=== PATIENT | male | born 1960 | race Caucasian/White ===

== ENCOUNTER 2017-01-06 13:17 | Emergency (ER) | payer OTHER ==
[~2017-01-06] VITALS: Ht 180.3 cm; Wt 163.3 kg
[~2017-01-06 13:17] MED LIST: ALBUTEROL2.5 MG/3 M INH; ALLOPURINOL300 MG PO; ALPRAZOLAM0.25 MG PO; AMOXICILLIN875 MG PO; ATENOLOL25 MG PO; ATENOLOL50 MG PO; BUDESONIDE0.5 MG/2 M INH; CARDURA4 MG PO; CATAFLAM50 MG PO; CIPROFLOXACIN500 MG PO; CITALOPRAM HBR20 MG PO; COZAAR50 MG PO; DICLOFENAC SODI50 MG PO; DOXYCYCLINE HY100 MG PO; DUONEB 0.5 MG-33 ML IH; FLOMAX0.4 MG PO; FUROSEMIDE20 MG PO; FUROSEMIDE40 MG PO; GUAIATUSSIN AC10 ML PO; HYDROCHLOROTH12.5 MG PO; HYDROCODON-ACE1 EA11 PO; LEVAQUIN500 MG PO; LOSARTAN POTAS100 MG PO; NARCAN4 MG NS; NORCO 7.5-3251 EACH PO; NORTRIPTYLINE H10 MG PO; OMEPRAZOLE20 MG PO; ONDANSETRON HCL8 MG PO; PAMELOR10 MG PO; PERCOCET 5-3251 EACH PO; PREDNISONE20 MG PO; PROCHLORPERAZIN10 MG PO; PROVENTIL HFA6.7 GM INH; SEPTRA DS TABL1 EACH PO; SPIRIVA18 MCG INH; VITAMIN D2000 UNIT PO; ZITHROMAX250 MG PO; ZITHROMAX500 MG PO
[2017-01-06] MEDS ORDERED: KEPPRA1000 MG PO (13:36)
[2017-01-06] MEDS ORDERED: NYSTATIN-TRIAMC15 GM TOP (13:36)
[2017-01-06] MEDS ORDERED: MEMANTINE HCL10 MG PO (13:37)
== END 2017-01-06 15:11 | disposition home or self-care (01) ==
LOC: ED 13:17
DX: R41.82 Altered mental status, unspecified (principal); I10 Essential (primary) hypertension; C34.90 Malignant neoplasm of unspecified part of unspecified bronchus or lung; C78.7 Secondary malignant neoplasm of liver and intrahepatic bile duct; F17.200 Nicotine dependence, unspecified, uncomplicated; Z88.5 Allergy status to narcotic agent; Z88.2 Allergy status to sulfonamides; Z88.8 Allergy status to other drugs, medicaments and biological substances; Z79.899 Other long term (current) drug therapy
CPT/HCPCS: 70450; 80048; 85025; 99284

== ENCOUNTER 2017-01-27 14:10 | Emergency (ER) | payer OTHER ==
[~2017-01-27] VITALS: Ht 180.3 cm; Wt 156.5 kg
[~2017-01-27 14:10] MED LIST changes: +KEPPRA1000 MG PO; +MEMANTINE HCL10 MG PO; +NYSTATIN-TRIAMC15 GM TOP
[2017-01-27] MEDS ORDERED: LEVETIRACETAM1000 MG PO (14:26)
== END 2017-01-27 15:50 | disposition home or self-care (01) ==
LOC: ED 14:10
PROC: 0S9D3ZZ Drainage of Left Knee Joint, Percutaneous Approach (ICD-10-PCS; principal; 2017-01-27)
DX: M25.562 Pain in left knee (principal); I10 Essential (primary) hypertension; J44.9 Chronic obstructive pulmonary disease, unspecified; F17.200 Nicotine dependence, unspecified, uncomplicated; Z88.5 Allergy status to narcotic agent; Z88.8 Allergy status to other drugs, medicaments and biological substances; Z88.2 Allergy status to sulfonamides; Z79.899 Other long term (current) drug therapy
CPT/HCPCS: 20610; 99282; J3301

== ENCOUNTER 2017-03-06 21:06 | Emergency (ER) | payer OTHER ==
[~2017-03-06] VITALS: Ht 180.3 cm; Wt 156.5 kg
[~2017-03-06 21:06] MED LIST changes: +LEVETIRACETAM1000 MG PO
[2017-03-06] MEDS ORDERED: XARELTO15 MG PO (22:02)
[2017-03-06] MEDS ORDERED: NORCO 7.5-3251 EACH PO (22:03)
[2017-03-06] MEDS ORDERED: BUDESONIDE0.5 MG/2 M INH (22:04)
[2017-03-07] MEDS ORDERED: AUGMENTIN 875-1 EACH PO (01:21)
--- NOTE | 2017-03-07 07:27 | EKG ---
[facility] [address] [place] [address] Signed Sinus bradycardia Right bundle branch block Abnormal ECG When compared with ECG of 12-NOV-2016 18:19, Nonspecific T wave abnormality now evident in Anterior leads Confirmed by PAWEL URIAS MD ([id number]) on 03/07/2017 7:27:47 AM Electronically Signed By: PAWEL URIAS MD 03/07/17 0727 PATIENT NAME: KRISTI LOBATO Electrocardiogram DATE OF : 56 PHYSICIAN: PAWEL URIAS MD REPORT #: [id number] REPORT IS CONFIDENTIAL AND NOT TO BE RELEASED WITHOUT AUTHORIZATION
== END 2017-03-07 01:50 | disposition home or self-care (01) ==
LOC: ED 21:06
DX: J01.90 Acute sinusitis, unspecified (principal); I95.9 Hypotension, unspecified; I10 Essential (primary) hypertension; J44.9 Chronic obstructive pulmonary disease, unspecified; F17.200 Nicotine dependence, unspecified, uncomplicated; Z85.118 Personal history of other malignant neoplasm of bronchus and lung; Z85.05 Personal history of malignant neoplasm of liver; Z85.841 Personal history of malignant neoplasm of brain; Z98.890 Other specified postprocedural states; Z88.1 Allergy status to other antibiotic agents; Z88.2 Allergy status to sulfonamides; Z88.8 Allergy status to other drugs, medicaments and biological substances; Z79.899 Other long term (current) drug therapy; Z79.51 Long term (current) use of inhaled steroids
CPT/HCPCS: 70450; 71010; 80053; 81001; 85025; 85610; 85730; 93005; 93010; 96361; 96374; 99284; J7030

== ENCOUNTER 2017-03-12 02:27 | Emergency (ER) | payer OTHER ==
[~2017-03-12] VITALS: Ht 180.3 cm; Wt 156.5 kg
[~2017-03-12 02:27] MED LIST changes: +AUGMENTIN 875-1 EACH PO; +XARELTO15 MG PO
== END 2017-03-12 04:55 | disposition home or self-care (01) ==
LOC: ED 02:27
DX: R44.3 Hallucinations, unspecified (principal); I10 Essential (primary) hypertension; J44.9 Chronic obstructive pulmonary disease, unspecified; C34.90 Malignant neoplasm of unspecified part of unspecified bronchus or lung; C78.7 Secondary malignant neoplasm of liver and intrahepatic bile duct; C79.31 Secondary malignant neoplasm of brain; F17.200 Nicotine dependence, unspecified, uncomplicated; Z88.2 Allergy status to sulfonamides; Z88.8 Allergy status to other drugs, medicaments and biological substances; Z79.899 Other long term (current) drug therapy
CPT/HCPCS: 80053; 83735; 85025; 99283; J7030

== ENCOUNTER 2017-04-25 08:22 | Observation (INO) | payer OTHER ==
[~2017-04-25] VITALS: Ht 180.3 cm; Wt 141.3 kg
--- NOTE | 2017-04-25 12:30 | NUR ---
PATIENT ARRIVED TO MED SURG VIA GURNEY. PATIENT ABLE TO ROLL AND AID IN LINEN CHANGE. PATIENT VOIDED TO URINAL, REPORTED HIS PAIN MAINLY FROM URGE TO URINATE. NURSE DISCUSSED WITH PATIENT THE MEDICATIONS AVAILABLE TO HIM. PATIENT CURRENTLY DENIES NEEDING MEDICATION FOR PAIN OR ANXIETY. FAMILY IN ROOM WITH PATIENT. DENTURES AT BEDSIDE TABLE. PATIENT HAS ORDERED SOUP FOR LUNCH.
--- NOTE | 2017-04-25 13:49 | NUR ---
PATIENT HAVING DIFFICULTY TOLERATING ANY TIME OFF OF BIPAP TO EAT. DISCUSSED WITH PATIENT AND FAMILY THAT THIS WOULD BECOME MORE THE CASE AND EVENTUALLY PATIENT WOULD NOT BE ABLE TO HAVE BIPAP OFF AT ALL. PATIENT AN FAMILY ARE AWARE OF THIS. PATIENT FAMILY CONTINUES TO CHECK PATIENT WITH HOME O2 OXIMETER. NURSE ENCOURAGED FAMILY TO WATCH FOR PATIENT RESPONSE TO HAVING BIPAP OFF, RATHER THAT CHECKING O2 LEVELS.
--- NOTE | 2017-04-25 14:55 | NUR ---
patient denies pain, but does endorse needing to sleep. 1mg of SL ATIVAN GIVEN. bi-pap is on. Extended family has left so patient may rest.
--- NOTE | 2017-04-25 16:08 | NUR ---
PATIENT GIVEN 20MG OF SL MORPHINE FOR 5-6/10 PAIN. PATIENT REPOSITIONED IN BED AND IS HOPING TO TAKE A NAP SOON.
--- NOTE | 2017-04-25 18:02 | NUR ---
PATIENT RESTING IN BED, APPEARS TO BE ASLEEP WITH BI-PAP ON. WILL PLAN TO GIVE XARELTO PATIENT WAKES UP. PATIENT VOIDS TO URINAL, HELPS REPOSITION SELF, BUT IS BED BOUND DUE TO RESPIRATORY STATUS. PATIENT CAN TOLERATE 5-6 MINUTES ON 6L PER NC THEN MUST BE BACK ON BI-PAP. NEW TEMP IS 100.5. PATIENT TO HAVE HOSPICE CONSULT TOMORROW.
--- NOTE | 2017-04-25 19:00 | NUR ---
REPORT RECEIVED FROM OFFGOING RN. FAMILY COMING AND GOING FROM PT'S ROOM.
--- NOTE | 2017-04-25 21:16 | NUR ---
PT LYING IN BED WITH BI-PAP IN PLACE. FAMILY SURROUNDING BEDSIDE. NO NON-VERBAL S/SX OF PAIN PRESENT. BREATHING IS SHALLOW AND TACHYPENIC. PT DOES NOT WAKE OR RESPOND WHEN ENGINE SETTER MOVES HIS HANDS/ARMS. PURPLE DISCOLORATION PRESENT TO TOP OF BILATERAL FEET JUST UNDER 2ND AND 3RD TOES. PT'S STATES THAT SHE WAS UNWARE PT HAD BRUISED HIS FEET. EDUCATION REGARDING END OF LIFE PROCESSES PROVIDED TO FAMILY, FAMILY STATES UNDERSTANDING, DENIES FURTHER QUESTIONS. CALL LIGHT WITHIN REACH OF FAMILY. STATES INTENTION TO STAY THE NIGHT WITH PATIENT.
--- NOTE | 2017-04-25 23:30 | NUR ---
PT LYING IN BED WITH EYES CLOSED, BI PAP IN PLACE. PT APPEARS TO BE SLEEPING, REMAINS TACHYPENIC. DISCUSION/EDUCATION PROVIDED TO PT'S REGARDING EOL CARE AND S/SX. UNDERSTANDING STATED, DENIES FURTHER QUESTIONS. PT WAKES EASILY WHEN ADJUNCT PHYSICAL EDUCATION INSTRUCTOR MOVES HIS ARM, ABLE TO FOLLOW COMMANDS AND ASSISTS WITH TURNING. LINENS ON BED CHANGED AND PT REPOSITIONED/PROPPED TO L SIDE. PT DENIES PAIN WHEN ASKED. PT AND HIS DENY FURTHER NEEDS. CALL LIGHT WITHIN PT'S REACH. UNDERSTANDS CALL LIGHT USE FOR NEEDS WELL, STATES THAT SHE PLANS TO STAY THE NIGHT.
--- NOTE | 2017-04-26 01:28 | NUR ---
PT RESTING IN BED WITH EYES CLOSED. BI PAP IN PLACE, RESPIRATIONS EVEN AND UNLABORED. PT APPEARS TO BE SLEEPING. PT'S SLEEPING AT BEDSIDE. CALL LIGHT WITHIN PT'S REACH.
--- NOTE | 2017-04-26 03:16 | NUR ---
PT RESTING IN BED WITH EYES CLOSED. BIPAP IS IN PLACE APPROPRIATELY. PT APPEARS TO BE SLEEPING. CALL LIGHT WITHIN PT'S REACH, PT SLEEPING ON COUCH.
--- NOTE | 2017-04-26 05:15 | NUR ---
PT RESTLESS IN BED, DETACHED BIPAP TUBING FROM MASK. TUBING RECONNECTED, RR 40. PT REPORTS DISCOMFORT, POINTS TO CHEST AREA. PRN MORPHINE ADMINISTERED. PT ASSISTED TO REPOSITION IN BED. PT RR 22 AFTER MORPHINE ADMINISTERD. PT STATES RELIEF FROM DISCOMFORT. PT'S REMAINS AT BEDSIDE. CALL LIGHT WITHIN PT'S REACH.
--- NOTE | 2017-04-26 05:49 | NUR ---
PT RESTED WELL THROUGHOUT THE NIGHT. MORPHINE X 1 FOR DISCOMFORT TO CHEST AREA AND INCREASED RESPIRATORY RATE. BED CHANGED DUE TO INCONTINENCE AND PT REPOSITIONED. PT REMAINS BEDBOUND. BIPAP IN PLACE. PT SUPPOSED TO HAVE HOSPICE CONSULT TODAY.
--- NOTE | 2017-04-26 07:49 | NUR ---
PATIENT IN BED ASLEEP. DOES NOT NEED ANYTHING ELSE AT THIS TIME.
--- NOTE | 2017-04-26 08:47 | NUR ---
PATIENT HAVING SOME SOB. MORPHINE 10MG GIVEN. AT BEDSIDE. BIPAP IN PLACE. RESP THERAPIST IN TO GIVE BREATHING TX. TOOK XARELTO ORDERED.
--- NOTE | 2017-04-26 09:00 | NUR ---
KATLYN NOTEMANGAS STATION CLERK IN TO SEE PATIENT/FAMILY.
--- NOTE | 2017-04-26 11:39 | NUR ---
PATIENT DOES NOT NEED ANYTHING AT THIS TIME. FAMILY IN ROOM.
--- NOTE | 2017-04-26 13:30 | NUR ---
SPOKE WITH PATIENT AND SIG OTHER IN ROOM. PATIENT WAS WEARING BIPAP AND WAS OBVIOUSLY LABORED BREATHING WITH SPEAKING. HE DEFERRED TO SIG OTHER FOR DETAILS BUT STATED HE WANTS TO GO HOME WITH HOSPICE HELP. SIG OTHER JUNITO ZEPEDA [phone] AT BEDSIDE. SHE STATES SHE IS READY TO TAKE PATIENT HOME TO CARE FOR HIM. SHE STATES SHE HAS MANY FAMILY MEMBERS AND FRIENDS WHO ARE GOING TO HELP. SHE HAS SPOKEN TO HOSPICE AND THEY ARE PLANNING ON HIS DISCHARGE TO HOME TOMORROW. SHE STATES THEY WILL NEED A EMS TRANSFER SHE IS SURE SHE CANNOT GET HIM IN A CAR. SHE STATES THEY HAVE 2 STEPS INTO APARTMENT AND HE WOULD NOT BE ABLE TO WALK DUE TO EXTREME WEAKNESS AND SOB. PATIENT IS DEPENDENT UPON THE BIPAP FOR CONTROL OF SOB. SHE IS AWARE HOME HEALTH WILL BE ARRANGING BED, CPAP AND OXYGEN. WILL CONTINUE TO WORK ON PLANS WITH HOME HEALTH AND EMS TOMORROW.
--- NOTE | 2017-04-26 14:15 | NUR ---
NURSE IN ROOM
--- NOTE | 2017-04-26 14:32 | NUR ---
PT IN BED WITH BIPAP ON. PT IS ABLE TO RESPOND THRU MASK AND PARTICIPATE WITH CONVERSATION. FAMILY PRESENT. THEIR OUTBOARD MOTOR INSPECTOR WAS JUST IN TO VISIT. OFFERED ASSISTANCE IF THERE ARE ANY QUESTIONS THEY HAVE. ENCOURAGED HIS TO WRITE DOWN ANY THOUGHTS SHE MAY HAVE RATHER THAN TRY TO REMEMBER. PT TO BE DC'D TOMORROW ON HOSPICE. PT REQUESTED PRAYER WELL FAMILY. WILL FOLLOW NEEDED
--- NOTE | 2017-04-26 15:54 | NUR ---
PATIENT DOING WELL. DOES NOT NEED ANYTHING AT THIS TIME.
--- NOTE | 2017-04-26 16:06 | NUR ---
NOTIFIED [facility] TO SCHEDULE PROBABLE NON-EMERGENT TRANSFER TOMORROW. PATIENT INFORMATION GIVEN, WILL CALL TOMORROW FOR TIME.
[2017-04-26] MEDS ORDERED: KEPPRA1000 MG PO (17:03)
[2017-04-26] MEDS ORDERED: LEVOTHYROXINE125 MCG PO (17:04)
[2017-04-26] MEDS ORDERED: METOPROLOL TART25 MG PO (17:07)
[2017-04-26] MEDS ORDERED: DAILY MULTIPLE1 EACH PO (17:08)
[2017-04-26] MEDS ORDERED: PREDNISONE20 MG PO (17:10)
[2017-04-26] MEDS ORDERED: SPIRIVA18 MCG INH (17:10)
[2017-04-26] MEDS ORDERED: ACETAMINOPHEN325 M1 PO (17:13)
--- NOTE | 2017-04-26 17:59 | NUR ---
MORPHINE/LORAZEPAM GIVEN PRN (GIVE PROPHYLACTICALLY FOR MEAL TIMES). LOTS OF FAMILY AT BEDSIDE. BIPAP THROUGHOUT DAY. SOB WITHOUT BIPAP. FAMILY HELPS WITH MEALS. NOT OUT OF BED D/T OXYGEN NEEDS. URINAL. S/L. WILL GO HOME ON HOSPICE TOMORROW. XARELTO FOR DVT PROPHYLAXIS.
--- NOTE | 2017-04-26 20:07 | NUR ---
PT LYING IN BED, BI PAP IN PLACE. RT AT BEDSIDE ADJUSTING BIPAP. PT WAKES FOR BRIEF PERIODS BUT QUICKLY FALLS BACK TO SLEEP. PT SLIGHTLY RESTLESS/ANXIOUS. PRN MS ADMINISTERED. CALL LIGHT WITHIN PT'S REACH, PT'S REMAINS AT BEDSIDE. DENIES OTHER NEEDS AT THIS TIME.
--- NOTE | 2017-04-26 23:42 | NUR ---
Pt resting in bed with eyes closed. Bi pap mask leaking. Mask readjusted, pt opens his eyes briefly. Denies pain or discomfort at this time. Pt's sleeping on couch in room, call light within pt's reach.
--- NOTE | 2017-04-27 00:20 | NUR ---
PT DISPLAYING INCREASED RESTLESSNESS, MOVING LEGS AND ARMS AROUND IN BED. SLIGHT MOANING AT TIMES. PRN MORPHINE ADMINISTERED. PT CALL LIGHT WITHIN REACH, SLEEPING IN ROOM.
--- NOTE | 2017-04-27 02:28 | NUR ---
PT RESTING WITH EYES CLOSED. RESPIRATIONS EVEN AND UNLABORED, SHALLOW RESPIRATIONS. RR IN 30'S, BIPAP IN PLACE. PT'S SLEEPING ON COUCH, CALL LIGHT WITHIN PT'S REACH.
--- NOTE | 2017-04-27 03:10 | NUR ---
RT IN ROOM TO CHECK ON PT, INFORMS POLICY WRITER THAT PT IS RESTLESS WITH LEGS JERKING AND CRYING OUT. POLICY WRITER TO ROOM, PT WAKES EASILY DENIES PAIN/DISCOMFORT. STATES "A LITTLE BIT, NOT BAD", WHEN ASKED IF SHORT OF BREATH. PT SHAKING LEGS, SQUEEZING WASH CLOTHS IN HANDS. PRN ATIVAN ADMINISTERED. CALL LIGHT WITHIN PT'S REACH, LYING ON COUCH AWAKE.
--- NOTE | 2017-04-27 03:50 | NUR ---
PTS AT BEDSIDE SHE STATES THAT PT APPEARS MORE RELAXED. NO JERKING OR RESTLESSNESS NOTED. PT TAKING DEEP BREATHS IN. PT'S STATES THAT SHE HAS NOTICED THAT PT'S BREATHING HAS CHANGED, SHE STATES THAT PT IS "GETTING CLOSER". SHE DENIES NEEDS AT THIS TIME. PT APPEARS TO BE RESTING COMFORTABLY.
--- NOTE | 2017-04-27 04:53 | NUR ---
MORPHINE X3, LORAZEPAM X 1 THIS SHIFT. MORPHINE AND LORAZEPAM NEED TO BE GIVEN PRIOR TO PT EATING PER MD. BIPAP IN PLACE. URINAL/INCONTINENCE, PT REMAINS IN BED ONLY. PLAN FOR PT TO DC HOME ON HOSPICE TOMORROW.
--- NOTE | 2017-04-27 05:40 | NUR ---
PT TURNED, RESPOSITIONED, AND PROPPED WITH PILLOWS. PT REMAINS AT BEDSIDE. NO NONVERBAL S/SX OF PAIN PRESENT. CALL LIGHT WITHIN REACH.
--- NOTE | 2017-04-27 07:55 | NUR ---
PATIENT ASLEEP IN BED. ONCE AWAKE, WILL OFFER AM CARE/BEDBATH. PATIENT'S IN ROOM. WHITEBOARD UPDATED, ROOM TIDIED.
--- NOTE | 2017-04-27 09:20 | NUR ---
SPOKE WITH HOSPICE DEPARTMENT. THEY HAVE ARRANGED FOR BED, AND BIPAP SET UP. PLAN WILL BE FOR [facility] TO BRING BIPAP TO HOSPITAL AROUND 11AM FOR TEACHING OF FAMILY AND FITTING. THEN THEY WILL SET HOSPITAL BED UP AT PATIENTS HOME. THEY STATED THEY SPOKE WITH SIG OTHER BY PHONE. VISITED PATIENTS ROOM. PATIENT SLEEPING. SIG OTHER IN ROOM AT BEDSIDE. SHE STATES SHE IS AWARE OF PLANS BY HOSPICE. DISCUSSED I AM ARRANGING EMS TRANSFER TO HOME. NO QUESTIONS AT THIS TIME.
--- NOTE | 2017-04-27 10:38 | NUR ---
NURSE IN ROOM.
--- NOTE | 2017-04-27 11:30 | NUR ---
PLAN IS FOR RESPT THERAPIST TO ACCOMPANY PATIENT HOME WITH TRANSPORT BIPAP AND EMS AT 1345. SPOKE WITH [facility]. THEY WILL HAVE BED AND OXYGEN AND BIPAP MACHINE AT THE HOUSE BEFORE THIS FOR HIS ARRIVAL. CALLED EMS, ARRANGED FOR 1345 TRANSPORT. WENT TO PATIENTS ROOM, IN TEARS, FINANCIAL ASSISTANT IN ROOM. PATIENT IS STRUGGLING. SPOKE WITH STAFF AND DR ZHENG. DR ZHENG STATES PATIENT IS NOW ACTIVELY DYING. DECSIION MADE TO CANCEL TRANSPORT. DR ZHENG SPOKE WITH FAMILY. CALLED HOSPICE DEPARTMENT AND EMS TO CANCEL PLANS.
--- NOTE | 2017-04-27 11:46 | NUR ---
MORPHINE AND ATIVAN ADMINISTERED TO PATIENT. NEW COFFEE, HOT WATER, AND ICE BUCKET PROVIDED TO FAMILY.
--- NOTE | 2017-04-27 12:14 | NUR ---
PATIENT'S FAMILY IN ROOM. DOES NOT NEED ANYTHIG AT THIS TIME. WILL BE TRANSPORTED AT 1445.
--- NOTE | 2017-04-27 12:53 | NUR ---
PT HAD CHANGE IN CONDITION. PT TRYING TO REMOVE BIPAP AND REPORTING PAIN. MORPHINE ADMINISTERED AT 1210. RESPIRATORY THERAPY ASSESSED PATIENT. CHANGE IN CONDITION NOTED BY RT WELL. FAMILY CALLED BY RT. HOSPITALIST, CHARGE NURSE, HOSPICE NURSE, AND PASTORAL CARE NOTIFIED. DECISION MADE TO CANCEL TRANSPORT HOME AND TO ALLOW NATURAL ON MED SURG UNIT PER FAMILY REQUEST. FAMILY AT BEDSIDE NOW. CHAIRS AND TISSUES PROVIDED. ALLOWING FAMILY TO HAVE TIME WITH PATIENT TO ALLOW GRIEVING PROCESS. BIPAP REMOVED BY RT AND OXYMASK APPLIED.
--- NOTE | 2017-04-27 13:09 | NUR ---
PATIENT AND TIME OF CALLED BY HOSPITALIST AT 1304. FAMILY AT BEDSIDE. PASTORAL CARE AVAILABLE FOR SUPPORT. ALLOWING FAMILY TIME WITH PATIENT. OXYMASK REMOVED AFTER TIME OF CALLED.
--- NOTE | 2017-04-27 14:29 | NUR ---
I WAS CONTACTED BY M\S STAFF THAT THE FAMILY OF THE PT WAS REQUESTING MY PRESENCE. I ARRIVED TO FIND A LARGE GROUP OF FAMILY PRESENT, WITH PT GASPING AND STRUGGLING TO BREATH. THE FAMILY KNEW HIS TIME WAS NEAR. THEIR AGENCY TRAINER WAS PRESENT, AND VERY CLOSE FRIENDS. I VOICED A PRAYER WITH THEM, SENSED HE COULD USE SOMETHNG TO CALM HIM. RN SAUL WAS ORDERING MORPHINE AND BEFOE WE COULD GIVE IT PT PASSED. FAMILY GRIEVING APPROPRIATELY, SELECTED [employer] FOR ARRANGEMENTS. PLACED PASSAGE QUILT ON PT, AND WILL PLACE [place] FLAG FOR HIS VET SERVICE ON PT. FAMILY NOTIFIED MID LEVEL GAME DESIGNER IS HERE. GOD BLESS THEM.
== END 2017-04-27 13:04 ==
LOC: ED 08:22 → MS 08:23
PROVIDERS: ADMIT Internal Medicine
PROC: 5A09457 Assistance with Respiratory Ventilation, 24-96 Consecutive Hours, Continuous Positive Airway Pressure (ICD-10-PCS; principal; 2017-04-25)
DX: J96.21 Acute and chronic respiratory failure with hypoxia (principal); C34.90 Malignant neoplasm of unspecified part of unspecified bronchus or lung; C78.7 Secondary malignant neoplasm of liver and intrahepatic bile duct; C79.31 Secondary malignant neoplasm of brain; Z68.41 Body mass index [BMI] 40.0-44.9, adult; J44.9 Chronic obstructive pulmonary disease, unspecified; I10 Essential (primary) hypertension; G47.30 Sleep apnea, unspecified; G89.4 Chronic pain syndrome; E66.9 Obesity, unspecified; K21.9 Gastro-esophageal reflux disease without esophagitis; F41.9 Anxiety disorder, unspecified; Z88.1 Allergy status to other antibiotic agents; Z88.2 Allergy status to sulfonamides; Z86.718 Personal history of other venous thrombosis and embolism; Z88.8 Allergy status to other drugs, medicaments and biological substances; Z79.01 Long term (current) use of anticoagulants; Z51.5 Encounter for palliative care; Z99.81 Dependence on supplemental oxygen; Z79.891 Long term (current) use of opiate analgesic; Z79.51 Long term (current) use of inhaled steroids; Z79.899 Other long term (current) drug therapy
CPT/HCPCS: 36415; 71010; 80053; 82803; 83605; 83880; 84484; 85025; 94640; 94660; 94760; 96374; 99285; G0378; J2930